=== PATIENT | male | born 2000 | race African-American/Black ===

== ENCOUNTER → 2021-07-11 | Outpatient (CLI) | payer MEDICAID ==
--- NOTE | 2021-07-11 16:09 | RAD ---
INDICATION: Left testicular pain. COMPARISON: None. TECHNIQUE: Grayscale, color and spectral doppler ultrasound images obtained of the scrotum. FINDINGS: Right Testicle: 49 x 34 x 27 mm. Vascular flow is identified. Left Testicle: 48 x 34 x 24 mm. Vascular flow is identified. Echogenic focus within the right side of the scrotum. Could be from causes such as a small scrotal pe arl. IMPRESSION: * Vascular flow is identified to the bilateral testicles. Electronically signed by: Checo Meier MD (07/11/2021 4:07 PM) [id number]
== END ==
LOC: US 14:27
PROVIDERS: ATTEND Pediatrics
DX: N50.82 Scrotal pain (principal)
CPT/HCPCS: 76870